=== PATIENT | male | born 1970 | race African-American/Black ===

== ENCOUNTER 2020-06-20 16:33 | Emergency (ER) | payer MEDICAID ==
[~2020-06-20] VITALS: Ht 172.7 cm; Wt 78.0 kg
[2020-06-20] MEDS ORDERED: NAPR-1164 PO (17:44)
[2020-06-20] MEDS ORDERED: CEPH500T PO (17:44)
--- NOTE | 2020-06-20 17:52 | NUR ---
Patient discharged to home in stable condition. Written and verbal after care instructions given. Patient verbalizes understanding of instructions. Stressed follow up or return to ER for worsening s/s.pt walks in steady gait. pt provided with the image to follow up with danny kapoor.
== END 2020-06-20 17:55 | disposition home or self-care (01) ==
LOC: ER 16:33
DX: S51.841A Puncture wound with foreign body of right forearm, initial encounter (principal); W34.09XA Accidental discharge from other specified firearms, initial encounter; Y92.89 Other specified places as the place of occurrence of the external cause
CPT/HCPCS: 73090; A4663

== ENCOUNTER 2021-02-08 09:17 | Emergency (ER) | payer MEDICAID ==
[~2021-02-08] VITALS: Ht 188 cm; Wt 82.1 kg
[~2021-02-08 09:17] MED LIST: CEPH500T PO; NAPR-1164 PO
--- NOTE | 2021-02-08 09:50 | NUR ---
PT IS IN ROOM #1A. DR PEARSON EVALUATED THE PT.
--- NOTE | 2021-02-08 11:45 | NUR ---
PT WAS D/C'd TO HOME AFTER ER MD EVALUATION. D/C INSTRUCTIONS GIVEN TO THE PTBY DR PEARSON.
[2021-02-08 11:46] VITALS: BP 142/71
== END 2021-02-08 11:47 | disposition home or self-care (01) ==
LOC: ER 09:17
DX: S20.212A Contusion of left front wall of thorax, initial encounter (principal); W19.XXXA Unspecified fall, initial encounter; Y92.89 Other specified places as the place of occurrence of the external cause
CPT/HCPCS: 71101; A4663